=== PATIENT | male | born 1955 | race Caucasian/White ===

== ENCOUNTER 2020-01-03 14:18 | Inpatient (IN) | payer MEDICARE ==
[~2020-01-03] VITALS: Ht 188 cm; Wt 99.7 kg
[2020-01-03] VITALS (33 sets, daily range): BP systolic 54–121; BP diastolic 20–86; BMI 28.0
--- NOTE | 2020-01-03 19:50 | NUR ---
ATTEMPTED TO CALL FAMILY TO GET CONSENT TO PLACE AN ART LINE, NO ONE ANSWERED. WILL CALL BACK IN 5 MINUTES
--- NOTE | 2020-01-03 19:55 | NUR ---
ATTEMPTED TO CALL FAMILY AGAIN THAT IS ON EMERGENCY CONTACT. NO ONE ASWERED AGAIN. PER TO PLACE A-LINE PER EMERGENT SITUATION. WILL ATTEMPT TO NOTIFY FAMILY AGAIN
--- NOTE | 2020-01-03 20:00 | NUR ---
IS HERE AT THIS TIME AND PLACED A LEFT RADIAL A-LINE. PT VSS, TOLERATED WELL.
--- NOTE | 2020-01-03 20:35 | NUR ---
TALKED WITH POST A-LINE INSERCTION AND ABG THAT WAS ORDERED. NEW ORDER TO DECREASE OXYGEN TO 5L AND GET ABG IN ONE HOUR FROM NOW. ALSO TO KEEP VASOPRESSIN ON AND TRY TO WEAN LEVOPHED IF TOLERATING. READ BACK ALL ORDERES CORRECT
--- NOTE | 2020-01-03 20:35 | NUR ---
PT HAD LARGE INCONTINENT DARK BLOOD LIQUID STOOL. CLEANED COMPLETELY WITH CHG CLEANSER WITH FULL LINEN CHANGE. VSS. PT TOLERATED WELL. BED IS LEFT LOW,SIDE RAISLX2,CALL LIGHT WITHIN REACH. WILL CONITNUE TO MONITOR
[2020-01-03 21:23] LABS: BASOPHILS 0.2 % (0-2); EOSINOPHILS 0.4 % (0-7); IMMATURE GRANULOCYTES 0.3 % (0-5); MCH 34.8 pg (26.0-34.0); MCHC 30.7 g/dL (31.0-37.0); MCV 113.6 fL (80.0-100.0); MONOCYTES 6.7 % (2-11); NEUTROPHILS 71.4 % (40-80); PLATELET COUNT 93 10x3/uL (130-400); RDW 18.1 % (11.5-14.5); WBC 11.3 10x3/uL (4.8-10.8)
--- NOTE | 2020-01-03 21:30 | NUR ---
NOTIFIED RT TO COME AND GET ABG PER ORDER. THEY SAID THEY WOULD BE HERE SHORTLY
[2020-01-03 21:53] LABS: APTT 39.4 SECONDS (22.8-39.4); INR 4.12 (0.85-1.17); PROTIME 39.1 SECONDS (11.6-15.0)
[2020-01-03 22:05] LABS: ALBUMIN 1.9 g/dL (3.4-5.0); ANION GAP 13.4 mmol/L (8-16); BILIRUBIN - TOTAL 1.79 mg/dL (0.2-1.3); CALCIUM 9.9 mg/dL (8.5-10.1); CARBON DIOXIDE 20.1 mmol/L (21.0-32.0); CREATININE - SERUM 2.7 mg/dL (0.6-1.3); MAGNESIUM - SERUM 1.6 mg/dL (1.8-2.4); PHOSPHOROUS 4.1 mg/dL (2.5-4.9); POTASSIUM - SERUM 4.5 mmol/L (3.5-5.1)
[2020-01-03 22:10] LABS: RBC 1.32 10x6/uL (4.20-6.10)
[2020-01-03 22:11] LABS: HEMOGLOBIN 4.6 g/dL (13.5-17.5)
--- NOTE | 2020-01-03 22:28 | NUR ---
JUST TALKED WITH AND UPDATED ON LABS AND ABG. T.O TO GIVE 2 UNITS OF PRBC AND 2 UNITS OF FFP, AND TO GIVE 60MG OF LASIX AFTER GIVING THE 2 UNITS OF PRBC. T.O TO HOLD LR SINCE GETTING BLOOD PRODUCTS. T.O TO REPLACE MAGNESIUM PER LYTE PROTOCOL. T.O READ BACK CORRECT. WILL CONTINUE TO MONITOR
[2020-01-03 22:42] LABS: PLATELET ESTIMATE DECREASED
--- NOTE | 2020-01-03 23:11 | MORECARE ---
CASE MANAGEMENT DISCHARGE SUMMARY PATIENT: CARO SOLIS UNIT: [id number] ADM DATE: 01/03/20 AGE: 64 : 55 SEX: M ROOM/BED: D.2307 AUTHOR: HOLLIS HUI PHYSICIAN: REFERRING PHYSICIAN: TWAN HARTMAN MD DATE OF SERVICE: 01/03/20 Discharge Plan Patient Name: CARO SOLIS Facility: [facility]:[place] : 1955 Planned Disposition: Anticipated Discharge Date: Discharge Date: Expected LOS: Initial Reviewer: [email or web address] Initial Review Date: 01/03/2020 Generated: 01/04/20 12:10 am Patient Name: CARO SOLIS Page [id number] at 2311 All edits/amendments must be made on the electronic document DICTATION DATE: 01/03/202309 PIPE AND BOILER COVERS SUPERVISOR: COREEN 01/03/202309 RPT#: [id number] DC DATE: STATUS: ADM IN [facility] [address] [place] [address] END OF REPORT
[2020-01-04] VITALS (52 sets, daily range): BP systolic 94–128; BP diastolic 52–109
--- NOTE | 2020-01-04 00:30 | NUR ---
LAB CALLED TO NOTIFY THAT FFP IS READY. 0039 STARTED FFP AFTER 2 RN VERIFY, VSS
--- NOTE | 2020-01-04 01:28 | NUR ---
JUST STARTED SECOND BAG OF FFP PER ORDER. WILL ADMINSITER LASIX IV 60MG ORDERED. VSS. SLOWLY COMING OFF LEVOPHED. SEE IV FLOWSHEET. BED IS LOW,SIDE RIASLX2,CALL LIGHT WITHIN REACH. WILL CONITNUE TO MONITOR
[2020-01-04 02:05] LABS: HEMATOCRIT 14.4 % (42.0-54.0); HEMOGLOBIN 4.5 g/dL (13.5-17.5)
--- NOTE | 2020-01-04 03:21 | NUR ---
PT HAD ANOTHER LARGE DARK BLOODY LIQUID INCONTINENT STOOL IN THE BED. CLEANED COMPLETELY WITH CHG AGAIN. PARTIAL LINEN CHANGE THIS TIME. VSS. PT TOLERATED WELL. BED IS LOW,SIDE RAISLX2,CALL LIGHT WITHIN REACH. WILL CONITNUE TO MONITOR
[2020-01-04 03:35] LABS: BASOPHILS 0.3 % (0-2); EOSINOPHILS 0.3 % (0-7); IMMATURE GRANULOCYTES 0.2 % (0-5); LYMPHOCYTES 23.7 % (15-50); MCH 34.3 pg (26.0-34.0); MCHC 31.1 g/dL (31.0-37.0); MEAN PLATELET VOLUME 10.1 fL (7.4-10.4); MONOCYTES 8.2 % (2-11); NEUTROPHILS 67.3 % (40-80); PLATELET COUNT 77 10x3/uL (130-400); WBC 8.9 10x3/uL (4.8-10.8)
[2020-01-04 03:54] LABS: INR 2.79 (0.85-1.17); PROTIME 28.9 SECONDS (11.6-15.0)
--- NOTE | 2020-01-04 04:28 | NUR ---
STARTED SECOND PRBC AT THIS TIME. VSS. SEE BLOOD INFUSION SHEET
[2020-01-04 04:32] LABS: HEMATOCRIT 15.1 % (42.0-54.0); HEMOGLOBIN 4.7 g/dL (13.5-17.5); MCV 110.2 fL (80.0-100.0); RBC 1.37 10x6/uL (4.20-6.10)
[2020-01-04 04:34] LABS: ALBUMIN 2.3 g/dL (3.4-5.0); ANION GAP 12.2 mmol/L (8-16); BILIRUBIN - TOTAL 1.77 mg/dL (0.2-1.3); C-REACTIVE PROTEIN 3.4 mg/dL (0.0-0.9); CALCIUM 10.2 mg/dL (8.5-10.1); CARBON DIOXIDE 19.9 mmol/L (21.0-32.0); CREATININE - SERUM 2.5 mg/dL (0.6-1.3); MAGNESIUM - SERUM 1.7 mg/dL (1.8-2.4); PHOSPHOROUS 3.9 mg/dL (2.5-4.9); POTASSIUM - SERUM 4.1 mmol/L (3.5-5.1); PROTEIN - SERUM 6.5 g/dL (6.4-8.2)
[2020-01-04 04:45] LABS: % SATURATION 16 % (15-55); IRON 42 ug/dl (35-150); TOTAL IRON BIND CAPACITY 248 ug/dl (260-445); UNSAT IRON BIND CAPACITY 206 ug/dl (150-375)
--- NOTE | 2020-01-04 04:50 | NUR ---
PAGED AT THIS TIME
--- NOTE | 2020-01-04 04:52 | NUR ---
TALKED WITH ABOUT PT LABS. T.O TO GIVE 2 UNITS OF PRBC NOW, T.O READ BACK CORRECT. ALSO TO CONTACT TO NOTIFY OF ACTIVE GI BLEED
--- NOTE | 2020-01-04 06:15 | NUR ---
PAGED GI AGAIN AT THIS TIME
--- NOTE | 2020-01-04 06:36 | NUR ---
PAGED [phone] GI ANSWERING SERVICE. THEY ARE PAGING
--- NOTE | 2020-01-04 07:00 | NUR ---
BEDSIDE SHIFT REPORT COMPLETED. INTRODUCED MYSELF TO PT PRIMARY RN FOR TODAYS SHIFT. PT IS AWAKE BUT WILL NOT FOLLOW COMMANDS AND HE IS TRYING TO TALK BUT VERY GARBLED AND UNABLE TO UNDERSTAND. NC HIFLOW @5L RR NONLABORED AND LUNGS ARE CTA. PTS BLOOD JUST FINISHED TRANSFUSING AND HE WILL RECIEVE ANOTHER UNIT. SHIFT ASSESSMENT COMPLETED. WILL REVIEW CHART AND ORDERS AND BEGIN PLAN OF CARE FOR THIS PATIENT.
--- NOTE | 2020-01-04 07:35 | NUR ---
INITIATED 3RD UNIT OF PRBCS ORDERED. VSS AND BEING MONITERED. PT AWAKE BUT WILL NOT FOLLOW COMMANDS AND HAS INCOMPREHENSIVE SOUNDS. WILL CPOC.
--- NOTE | 2020-01-04 09:00 | NUR ---
OBTAINED TELEPHONE CONSENT FOR EGD WITH LIZA PARSONS VIA PTS NEKATHI WHOM HE WAS LIVING WITH PRIOR TO ID. ADILENE LOPEZ .
--- NOTE | 2020-01-04 10:00 | NUR ---
BLOOD TRANSFUSION COMPLETED. FLUSHED LINE AND PREPARED TO TAKE PT FOR HIS CT OF HEAD AND ELBOW. ELBOW CULTURE COMPLETED AND SENT TO LAB. PT IS AWAKE AND TRYING TO BE CONVERSANT HOWEVER I CANT UNDERSTAND WHAT HE IS SAYING AT ALL. PTS MOTHER WHOM LIVES IN [place] CALLED AND WAS UPDATED. PTS SUKUMAR WHOM WAS LIVING WITH HIM PRIOR TO STROKE AND [place] CALLED AND WAS ALSO UPDATED AND GAVE VERY RESOURCEFUL INFORMATION ABOUT EVENTS THAT LED TO HERE. I PERSONALLY UPDATED . WILL CONTACT [place] AND OTHER HOSPITAL FOR RECORDS.
--- NOTE | 2020-01-04 10:57 | NUR ---
4TH UNIT OF PRBCS INITIATED. ORDERED 2 MORE WELL SO THIS IS 4/6UNITS OF PRBCS. VSS AND BP MAINTAINING SBP>100 AND MAP >60 I CONTINUE TO WEAN HIS LEVOPHED. CURRENTLY LEVOPHED @5MCG WILL KEEP WEANING TOLERATED. NO CURRENT NEEDS IDENTIFIED AT THIS TIME. RESTRAINTS UN-TIED PT IS BEING COOPERATIVE. WILL CPOC.
--- NOTE | 2020-01-04 13:00 | NUR ---
4TH UNIT COMPLETED AND NO S/S OF ANY REACTIONS NOTED. VSS AND LEVOPHED HAS BEEN WEANED DOWN AND NOW COMPLETELY OFF WITH BP 112/80, VASOPRESSIN STILL INFUSING AND WILL CONTINUE TO MONITER AND WEAN TOLERATED. 5TH UNIT OF PRBCS INITIATED. LASIX PUSHED ORDERED FOR IN BETWEEN UNITS. PTS WADDELL DRAINING GOOD AMOUNT OF OUTPUT TO WADDELL HANGING OFF L.SIDE OF BED TO GRAVITY, CLEAR YELLOW URINE. REPOSITIONED PT IN BED FOR COMFORT AND CHECKED FOR INCONTINENCE NO BOWEL MOVEMENTS OF YET FOR TODAY. PT RESTING QUIETLY IN BED, NO S/S OF DISTRESS AT THIS TIME. RESTRAINTS REMAIN OFF. WILL CPOC.
--- NOTE | 2020-01-04 14:09 | NUR ---
PTS BP REMAINS STABLE AND NOT HYPOTENSIVE. TURNED OFF VASOPRESSIN AND WILL CTM IT. 5TH UNIT OF BLOOD STILL TRANSFUSING. NO CURRENT NEEDS AT THIS TIME. WILL CTM.
[2020-01-04] MEDS ORDERED: XANAX0.5 MG PO (15:11)
[2020-01-04] MEDS ORDERED: ELIQUIS5 MG PO (15:11)
[2020-01-04] MEDS ORDERED: LIPITOR40 MG PO (15:12)
[2020-01-04] MEDS ORDERED: LOW DOSE ASPIRI81 M1 PO (15:12)
[2020-01-04] MEDS ORDERED: PEPCID AC20 MG PO (15:13)
[2020-01-04] MEDS ORDERED: COLCRYS0.6 MG PO (15:13)
[2020-01-04] MEDS ORDERED: KEPPRA1000 MG PO (15:14)
[2020-01-04] MEDS ORDERED: METOPROLOL TART50 MG PO (15:15)
[2020-01-04] MEDS ORDERED: ZOLOFT25 MG PO (15:16)
--- NOTE | 2020-01-04 15:17 | NUR ---
OBTAINED EXTENSIVE HISTORY OF PTS MEDS AND RECENT HOSPITAL STAYS AND LABS. ALL PROVIDED NOW IN THE CHART. WILL RELAY MESSAGE TO PRIMARY SO EVERYONE HAS THE MOST ACCURATE INFORMATION.
--- NOTE | 2020-01-04 15:40 | NUR ---
6TH AND FINAL UNIT OF BLOOD INITIATED ORDERED FOR TODAY. VSS AND ALL PRESSORS ARE TURNED OFF. PT AWAKE AND STARING OFF TO THE LEFT SIDE IN BED. NO BM OR INCONTINENT EPISODE SO FAR TODAY. WADDELL DRAINING CLEAR YELLOW URINE TO GRAVITY OFF L.SIDE OF BED. NO IMMEDIATE NEEDS NOTED AT THIS TIME. WILL CPOC.
[2020-01-04 15:58] LABS: HEMATOCRIT 32.3 % (42.0-54.0); HEMOGLOBIN 10.8 g/dL (13.5-17.5)
--- NOTE | 2020-01-04 17:15 | NUR ---
EGD BEING PERFORMED AT BEDSIDE AT THIS TIME.
--- NOTE | 2020-01-04 17:54 | NUR ---
EGD COMPLETED. LAST UNIT OF BLOOD TRANFUSED AND STILL NO REACTION NOTED. PT RESTING QUIETLY IN BED WITH SIMPLE MASK IN PLACE. VSS AND PT REMAINS SBP >100 AND MAP >60 WITHOUT PRESSURE MEDICATION SUPPORT. NO IMMEDIATE NEEDS AT THIS TIME. WILL CPOC.
[2020-01-05] VITALS (24 sets, daily range): BP systolic 49–160; BP diastolic 36–131; Ht 188 cm; Wt 99.7 kg
[2020-01-05 06:23] LABS: BASOPHILS 0.3 % (0-2); EOSINOPHILS 2.6 % (0-7); HEMATOCRIT 33.1 % (42.0-54.0); HEMOGLOBIN 11.2 g/dL (13.5-17.5); IMMATURE GRANULOCYTES 0.6 % (0-5); LYMPHOCYTES 20.2 % (15-50); MCH 31.1 pg (26.0-34.0); MCHC 33.8 g/dL (31.0-37.0); MEAN PLATELET VOLUME 10.6 fL (7.4-10.4); MONOCYTES 10.6 % (2-11); NEUTROPHILS 65.7 % (40-80); RDW 20.8 % (11.5-14.5); WBC 7.2 10x3/uL (4.8-10.8)
--- NOTE | 2020-01-05 06:23 | NUR ---
PT HAS REMAINED STABLE THIS SHIFT. HE HAD 2 MEDIUM INCONTINENT BM OF BLACK TARRY STOOL. PT REMAINS NONCOMPLIANT BUT HAS NOT ATTEMPTED TO PULL OUT MEDICAL DEVICES OR LINES. I SPOKE WITH FAMILY AT THE BEGINNING OF THE SHIFT AND UPDATED THEM ON HIS STATUS AND ANSWERED ALL QTS. NAD AT THIS TIME. SAFETY PRECAUTIONS IN PLACE. WILL CONTINUE TO MONITOR
[2020-01-05 06:52] LABS: ALBUMIN 2.3 g/dL (3.4-5.0); BILIRUBIN - TOTAL 3.85 mg/dL (0.2-1.3); C-REACTIVE PROTEIN 4.5 mg/dL (0.0-0.9); CALCIUM 10.8 mg/dL (8.5-10.1); CARBON DIOXIDE 24.7 mmol/L (21.0-32.0); CREATININE - SERUM 2.2 mg/dL (0.6-1.3); PROTEIN - SERUM 6.7 g/dL (6.4-8.2)
[2020-01-05 06:57] LABS: MCV 91.9 fL (80.0-100.0)
[2020-01-05 06:58] LABS: PLATELET COUNT 49 10x3/uL (130-400)
[2020-01-05 07:07] LABS: ANION GAP 12.6 mmol/L (8-16); POTASSIUM - SERUM 3.3 mmol/L (3.5-5.1)
--- NOTE | 2020-01-05 23:56 | NUR ---
2100 PT ALERT. INCOMPREHENSIBLE SPEECH NOTED. PT IS NONCOMPLIANT WITH CARE. RN X2 TO TURN AND CLEAN PATIENT. COMPRESSION DRESSING TO LUE NOTED IN PLACE. BRIGHT RED BLOOD NOTED. NEW PAD APPLIED TO MONITOR OUTPUT. PLATELET COUNT OF 49 NOTED WITH AM LABS. PT REFUSED PO MEDS WILL. EDUCATED ABOUT MEDICATIONS AND NEED FOR COMPLIANCE WITH MED REGIMEN AT THIS TIME. GIVE HIM TIME AND TRY MEDS AGAIN 2200 PT CLAMPS DOWN JAWS AND REFUSED TO TAKE PO MEDS. WILL GIVE MORE TIME 2300 PT CONTINUES TO BE NONCOMPLIANT WITH PO MEDS. HR 125-140. [facility] CONTACTED 2315 NEW ORDERS FOR IV LOPRESSOR, KEPPRA, AND BENADRYL. KEPPRA IS UNAVAILABLE IN [facility]. [facility] NOTIFIED OF NEED FOR IV KEPPRA. AWAITING KEPPRA AT THIS TIME. WILL CONTINUE TO MONITOR
[2020-01-06] VITALS (24 sets, daily range): BP systolic 119–155; BP diastolic 75–120
[2020-01-06 06:03] LABS: BASOPHILS 0.2 % (0-2); EOSINOPHILS 0.5 % (0-7); HEMATOCRIT 33.6 % (42.0-54.0); IMMATURE GRANULOCYTES 0.5 % (0-5); LYMPHOCYTES 19.4 % (15-50); MCH 30.9 pg (26.0-34.0); MCHC 32.7 g/dL (31.0-37.0); MEAN PLATELET VOLUME 10.6 fL (7.4-10.4); NEUTROPHILS 71.4 % (40-80); RBC 3.56 10x6/uL (4.20-6.10); RDW 20.9 % (11.5-14.5); WBC 5.6 10x3/uL (4.8-10.8)
[2020-01-06 06:06] LABS: INR 1.6 (0.85-1.17); PROTIME 18.9 SECONDS (11.6-15.0)
[2020-01-06 06:16] LABS: ALBUMIN 2.1 g/dL (3.4-5.0); ANION GAP 10.2 mmol/L (8-16); BILIRUBIN - TOTAL 3.37 mg/dL (0.2-1.3); C-REACTIVE PROTEIN 3.7 mg/dL (0.0-0.9); CALCIUM 10.7 mg/dL (8.5-10.1); CREATININE - SERUM 1.9 mg/dL (0.6-1.3); POTASSIUM - SERUM 3.2 mmol/L (3.5-5.1); PROTEIN - SERUM 6.7 g/dL (6.4-8.2); VANCOMYCIN - RANDOM 19.3 ug/mL (10.0-20.0)
[2020-01-06 06:45] LABS: MCV 94.4 fL (80.0-100.0)
[2020-01-06 06:46] LABS: PLATELET COUNT 43 10x3/uL (130-400)
--- NOTE | 2020-01-06 06:59 | NUR ---
CRITICAL LAB CHLORIDE 118 PLATELET [address] MARTINEZ IN UNIT. NO NEW ORDERS AT THIS TIME
--- NOTE | 2020-01-06 07:30 | NUR ---
PT LAYING IN BED, PT NOT ORIENTED AND SPEECH IS GARBLED, PT DOES NOT FOLLOW COMMANDS, PT REPOSIIONED FOR COMFORT, WILL MONITOR
--- NOTE | 2020-01-06 09:46 | NUR ---
Nutrition follow-up: Pt continues NPO; GI bleed Labs reviewed Wt: 211# Recommend starting ProcalAmine PPN @ 75 ml/hr if diet unable to begin today. RDN following.
[2020-01-06 10:32] LABS: PLATELET ESTIMATE DECREASED
[2020-01-06 10:33] LABS: ROULEAUX OCC
--- NOTE | 2020-01-06 10:35 | NUR ---
DR. HARTMAN HERE SEEING PT
--- NOTE | 2020-01-06 12:00 | NUR ---
PY LAYING IN BED RESTING, DOES NOT FOLLOW COMMANDS, ATTEMPTED TO RE ORIENT, WILL MONITOR
--- NOTE | 2020-01-06 14:00 | NUR ---
SPEECH THERAPIST AT BEDSIDE FOR SWALLOW STUDY, PT TOLERATED WELL, RECOMENDED PURRED DIET WITH THIN LIQUIDS, POSITIONED FOR COMFORT, WILL MONITOR
--- NOTE | 2020-01-06 15:20 | NUR ---
DRESSING CHANGED TO RIGHT ELBOW AT THIS TIME, CDI, PT TOLERATED WELL, SCOTTIE BARKER
--- NOTE | 2020-01-06 17:00 | NUR ---
PT REFUSES TO EAT DINNER AT THIS TIME, ATTEMPTED TO REORIENT, WILL MONITOR
[2020-01-06 17:47] LABS: ANION GAP 8.7 mmol/L (8-16); CALCIUM 10.7 mg/dL (8.5-10.1); CARBON DIOXIDE 25.9 mmol/L (21.0-32.0); CREATININE - SERUM 1.7 mg/dL (0.6-1.3); POTASSIUM - SERUM 3.6 mmol/L (3.5-5.1)
--- NOTE | 2020-01-06 17:59 | NUR ---
OFFERED WATER, TOLERATED WELL, WILL MONITOR
--- NOTE | 2020-01-06 19:54 | MORECARE ---
CASE MANAGEMENT DISCHARGE SUMMARY PATIENT: CARO SOLIS UNIT: [id number] ADM DATE: 01/03/20 AGE: 64 : 55 SEX: M ROOM/BED: D.2307 AUTHOR: HOLLIS HUI PHYSICIAN: REFERRING PHYSICIAN: TWAN HARTMAN MD DATE OF SERVICE: 01/06/20 Discharge Plan Patient Name: CARO SOLIS [facility] [facility] 1955 Planned Disposition: Care Home Facility Anticipated Discharge Date: Discharge Date: Expected LOS: Initial Reviewer: [email or web address] Initial Review Date: 01/03/2020 Generated: 01/06/20 8:54 pm Last DP export: 01/03/20 10:11 p Patient Name: CARO SOLIS Page [id number] at 1953 All edits/amendments must be made on the electronic document DICTATION DATE: 01/06/201953 STONE DRESSER: COREEN 01/06/201953 RPT#: [id number] DC DATE: STATUS: ADM IN [facility] [address] [place] [address] END OF REPORT
--- NOTE | 2020-01-06 20:01 | MORECARE ---
CASE MANAGEMENT DISCHARGE SUMMARY PATIENT: CARO SOLIS UNIT: [id number] ADM DATE: 01/03/20 AGE: 64 : 55 SEX: M ROOM/BED: D.2307 AUTHOR: HOLLIS HUI PHYSICIAN: REFERRING PHYSICIAN: TWAN HARTMAN MD DATE OF SERVICE: 01/06/20 Discharge Plan Patient Name: CARO SOLIS [facility] [facility] 1955 Planned Disposition: [facility] Facility Anticipated Discharge Date: Discharge Date: Expected LOS: Initial Reviewer: [email or web address] Initial Review Date: 01/03/2020 Generated: 01/06/20 9:00 pm DCPIA - Discharge Planning Initial Assessment Updated by [email or web address]: Aleja Gerber on 01/06/20 7:59 pm * Is the patient Alert and Oriented? Yes * PCP [facility] * Pharmacy [facility] * Preadmission Environment [facility] Facility * Facility Name [facility] * ADLs Partial Dependent * Partial ADLs (Assistance needed) Ambulation Bathing Dressing Eating Medication Management Toileting Transfers * List name and contact numbers for known caregivers / representatives who currently or will assist patient after discharge: ADILENE FRASER - [phone] PATTIE SOLIS - [phone] JD SOLIS [phone] * Additional services required to return to the preadmission environment? No * Can the patient safely return to the preadmission environment? Yes * Has this patient been hospitalized within the prior 30 days at any hospital? No Last DP export: 01/06/20 6:54 p Patient Name: CARO SOLIS Page [id number] at 2001 All edits/amendments must be made on the electronic document DICTATION DATE: 01/06/201999 CLIENT MANAGER: COREEN 01/06/201999 RPT#: [id number] DC DATE: STATUS: ADM IN [facility] [address] [place] [address] END OF REPORT
--- NOTE | 2020-01-06 20:08 | MORECARE ---
CASE MANAGEMENT DISCHARGE SUMMARY PATIENT: CARO SOLIS UNIT: [id number] ADM DATE: 01/03/20 AGE: 64 : 55 SEX: M ROOM/BED: D.2307 AUTHOR: KORINA,DOC PHYSICIAN: REFERRING PHYSICIAN: TWAN HARTMAN MD DATE OF SERVICE: 01/06/20 Discharge Plan Patient Name: CARO SOLIS Facility: [facility]:[place] : 1955 Planned Disposition: Prison Facility Anticipated Discharge Date: Discharge Date: Expected LOS: Initial Reviewer: [email or web address] Initial Review Date: 01/03/2020 Generated: 01/06/20 9:07 pm Comments DCP- Discharge Planning Updated by [id number]: Aleja Gerber on 01/06/20 7:[address] LATE ENTRY 01/04/20 Patient Name: CARO SOLIS Admission Status: Elective Accout number: [id number] Admission Date: 01-03-2020 : 1955 Admission Diagnosis:SEPSIS, UNSPECIFIED ORGANISM Attending: MINNIE, Current LOS: 3 Anticipated DC Date: Planned Disposition: Prison Facility Primary Insurance: MEDICARE A & B Discharge Planning Comments: PATIENT IS IN A PENITENTIARY BED AT [facility] IN [place] [phone]. PLAN IS TO RETURN THERE FOR REHAB UPON DISCHARGE. CM WILL CONTINUE TO FOLLOW AND ASSIST NEEDED WITH DISCHARGE PLANNING / NEEDS. Site Supervisor: Aleja Gerber DCPIA - Discharge Planning Initial Assessment Updated by [email or web address]: Aleja Gerber on 01/06/20 7:59 pm * Is the patient Alert and Oriented? Yes * [facility] * [facility] * Preadmission Environment Prison Facility * Facility Name [facility] * ADLs Partial Dependent * Partial ADLs (Assistance needed) Ambulation Bathing Dressing Eating Medication Management Toileting Transfers * List name and contact numbers for known caregivers / representatives who currently or will assist patient after discharge: ADILENE FRASER - [phone] PATTIE STRANGE - [phone] JD SOLIS - [phone] * Additional services required to return to the preadmission environment? No * Can the patient safely return to the preadmission environment? Yes * Has this patient been hospitalized within the prior 30 days at any hospital? No Last DP export: 01/06/20 7:01 p Patient Name: CARO SOLIS Page 19652 at 2008 All edits/amendments must be made on the electronic document DICTATION DATE: 01/06/202006 AGENT PRODUCER: COREEN 01/06/202006 RPT#: [id number] DC DATE: STATUS: ADM IN [address] [place] [address] END OF REPORT
[2020-01-07] VITALS (24 sets, daily range): BP systolic 104–144; BP diastolic 55–95
[2020-01-07 06:15] LABS: BASOPHILS 0.3 % (0-2); EOSINOPHILS 3.5 % (0-7); HEMATOCRIT 31.8 % (42.0-54.0); HEMOGLOBIN 10.4 g/dL (13.5-17.5); IMMATURE GRANULOCYTES 0.3 % (0-5); LYMPHOCYTES 31.2 % (15-50); MCH 31.1 pg (26.0-34.0); MCHC 32.7 g/dL (31.0-37.0); MCV 95.2 fL (80.0-100.0); MONOCYTES 7.4 % (2-11); NEUTROPHILS 57.3 % (40-80); RBC 3.34 10x6/uL (4.20-6.10); RDW 20.2 % (11.5-14.5); WBC 6.4 10x3/uL (4.8-10.8)
[2020-01-07 06:21] LABS: PLATELET COUNT 42 10x3/uL (130-400)
[2020-01-07 06:37] LABS: ALBUMIN 2.1 g/dL (3.4-5.0); ANION GAP 9.1 mmol/L (8-16); BILIRUBIN - TOTAL 2.85 mg/dL (0.2-1.3); CALCIUM 10.4 mg/dL (8.5-10.1); CARBON DIOXIDE 24.1 mmol/L (21.0-32.0); CREATININE - SERUM 1.6 mg/dL (0.6-1.3); POTASSIUM - SERUM 3.2 mmol/L (3.5-5.1); PROTEIN - SERUM 6.1 g/dL (6.4-8.2)
[2020-01-07 06:45] LABS: INR 1.55 (0.85-1.17); PROTIME 18.4 SECONDS (11.6-15.0)
--- NOTE | 2020-01-07 07:30 | NUR ---
PT LAYING IN BED RESTING, NO ACUTE DISTRESS NOTED, PT IS DISORIENTED AND DOES NOT FOLLOW COMMANDS, POSITIONED FOR COMFORT, WILL MONITOR
--- NOTE | 2020-01-07 08:30 | NUR ---
OFFERED PT BREAKFAST, REFUSES TO EAT, PO MEDS GIVEN IN APPLSAUCE, TOLERATED WELL, WILL MONITOR
--- NOTE | 2020-01-07 10:45 | NUR ---
DR HARTMAN HERE SEEING PATIENT
--- NOTE | 2020-01-07 12:00 | NUR ---
A LINE DC'D AT THIS TIME, DRESSING APPLIED, COMPLETE LINEN CHANGE AND PT REPOSITIONED, WILL MONITOR
[2020-01-07 13:08] LABS: MAGNESIUM - SERUM 1.4 mg/dL (1.8-2.4)
[2020-01-07 13:09] LABS: POTASSIUM - SERUM 3.9 mmol/L (3.5-5.1)
--- NOTE | 2020-01-07 14:00 | NUR ---
PT SLEEPING, NO DISTRESS NOTED, WILL MONITOR
--- NOTE | 2020-01-07 16:00 | NUR ---
RESTING COMFORTABLE, OFFERED WATER, PT REFUSES, WILL MONITOR
--- NOTE | 2020-01-07 17:54 | NUR ---
pt sleeping, no distress noted, will monitor
[2020-01-08] VITALS (22 sets, daily range): BP systolic 100–166; BP diastolic 59–101
--- NOTE | 2020-01-08 02:52 | NUR ---
0200 - SPOKE WITH DR. VILLALOBOS REGARDING LAB RESULTS OF TROPONIN AT 12.481 AND CKMB OF 15.4. ORDERS RECEIVED TO CONSULT DR. PAZ IN AM WELL TO OBTAIN CT OF HEAD WITHOUT CONTRAST IN THE MORNING
[2020-01-08 03:53] LABS: INR 1.47 (0.85-1.17); PROTIME 17.7 SECONDS (11.6-15.0)
[2020-01-08 03:56] LABS: BASOPHILS 0.3 % (0-2); EOSINOPHILS 4.9 % (0-7); HEMATOCRIT 33.1 % (42.0-54.0); HEMOGLOBIN 10.9 g/dL (13.5-17.5); IMMATURE GRANULOCYTES 0.2 % (0-5); LYMPHOCYTES 26.3 % (15-50); MCH 31.8 pg (26.0-34.0); MCHC 32.9 g/dL (31.0-37.0); MCV 96.5 fL (80.0-100.0); MEAN PLATELET VOLUME 11.4 fL (7.4-10.4); NEUTROPHILS 60.3 % (40-80); RBC 3.43 10x6/uL (4.20-6.10); RDW 19.7 % (11.5-14.5); WBC 6.6 10x3/uL (4.8-10.8)
[2020-01-08 03:58] LABS: PLATELET COUNT 42 10x3/uL (130-400)
[2020-01-08 04:00] LABS: ALBUMIN 1.9 g/dL (3.4-5.0); ANION GAP 9.3 mmol/L (8-16); BILIRUBIN - TOTAL 2.67 mg/dL (0.2-1.3); CALCIUM 9.7 mg/dL (8.5-10.1); CARBON DIOXIDE 24.2 mmol/L (21.0-32.0); CREATININE - SERUM 1.5 mg/dL (0.6-1.3); POTASSIUM - SERUM 3.5 mmol/L (3.5-5.1); PROTEIN - SERUM 6.3 g/dL (6.4-8.2); VANCOMYCIN - RANDOM 23.1 ug/mL (10.0-20.0)
--- NOTE | 2020-01-08 07:43 | NUR ---
PT LAYING SUPINE, RR EVEN AND UNLABORED ON 2L NC. SPEECH IS MUMBLED. IN 2 POINT RESTRAINTS AT THE WRIST, NO SIGN OF REDNESS OR SKIN INTEGRITY ISSUES AROUND RESTRAINTS. DRESSINGS TO LEFT UPPER ARM AND RIGHT ELBOW NOTED CLEAN, DRY, AND INTACT. D5 INFUSING @ 100MLS/HR. MOUTH IS DRY WITH DRY SKIN ON LIPS, WILL RECIEVE ORAL CARE THIS AM. PT IS YELLING, BUT UNABLE TO UNDERSTAND. WADDELL NOTED. BED IN LOWEST POSITION. WILL CONTINUE TO MONITOR.
--- NOTE | 2020-01-08 09:16 | NUR ---
CAN UNDERSTAND PT EVERY ONCE IN A WHILE, STILL CONFUSED TO TIME, PERSON, PLACE, AND SITUATION. ABLE TO COUGH UP AND SPIT OUT SECRETIONS, BUT REFUSES TO BE SUCTIONED OUT. MUCOUS SEQUEIRA AND THICK; HOWEVER, LUNG SOUNDS CLEAR. ASSISTED WITH WASHING FACE. MOUTH MOISTURIZER APPLIED. PT REFUSED TO OPEN MOUTH TO PROVIDE ORAL CARE. ABLE TO TOLERATE MEDICATIONS CRUSHED AND IN APPLESAUCE. ATE 25% OF FOOD. BED IN LOWEST POSITION. RR EVEN AND UNLABORED ON 2L HF NC. WILL CONTINUE TO MONITOR.
--- NOTE | 2020-01-08 11:44 | NUR ---
PER DR HARTMAN, TRANSFER PT BACK TO FACILITY WHICH HE WAS INITIALLY TRANSFERRED FROM. CASE MANAGEMENT NOTIFIED.
--- NOTE | 2020-01-08 12:30 | MORECARE ---
CASE MANAGEMENT DISCHARGE SUMMARY PATIENT: CARO SOLIS UNIT: [id number] ADM DATE: 01/03/20 AGE: 64 : 55 SEX: M ROOM/BED: D.2307 AUTHOR: KORINADOC PHYSICIAN: REFERRING PHYSICIAN: TWAN HARTMAN MD DATE OF SERVICE: 01/08/20 Discharge Plan Patient Name: CARO SOLIS Facility: [facility]:[place] : 1955 Planned Disposition: Care Home Facility Anticipated Discharge Date: Discharge Date: Expected LOS: Initial Reviewer: [email or web address] Initial Review Date: 01/03/2020 Generated: 01/08/20 1:29 pm Comments DCP- Discharge Planning Updated by [email or web address]: James Diop on 01/08/20 11:[address] Patient Name: CARO SOLIS Encounter No: [id number] : 1955 Primary Insurance: MEDICARE A & B Anticipated DC Date: Planned Disposition: Care Home Facility External Planned Provider: : DCP follow-up note: Telephone call to [facility] in [place], [place] spoke with PINKY Jimenez (maintenance worker house trailer). Barbara states that [facility] is unable to take patients in restraints. Barbara further stated that if patients are in restraints then a higher level of care is needed and their facility is unable to provide that care. Hospital to Hospital transfer is not feasible at this time. Case management will follow and assist as needed. James Diop DCP- Discharge Planning Updated by [id number]: Aleja Gerber on 01/06/20 7:[address] LATE ENTRY 01/04/20 Patient Name: CARO SOLIS Admission Status: Elective Accout number: [id number] Admission Date: 01-03-2020 : 1955 Admission Diagnosis:SEPSIS, UNSPECIFIED ORGANISM Attending: MINNIE, Current LOS: 3 Anticipated DC Date: Planned Disposition: Care Home Facility Primary Insurance: MEDICARE A & B Discharge Planning Comments: PATIENT IS IN A LONG-TERM BED AT [facility] IN [place] [phone]. PLAN IS TO RETURN THERE FOR REHAB UPON DISCHARGE. CM WILL CONTINUE TO FOLLOW AND ASSIST NEEDED WITH DISCHARGE PLANNING / NEEDS. Spot Sprayer: Aleja Gerber DCPIA - Discharge Planning Initial Assessment Updated by [id number]: Aleja Gerber on 01/06/20 7:59 pm * Is the patient Alert and Oriented? Yes * PCP [facility] * Pharmacy [facility] * Preadmission Environment Care Home Facility * Facility Name [facility] * ADLs Partial Dependent * Partial ADLs (Assistance needed) Ambulation Bathing Dressing Eating Medication Management Toileting Transfers * List name and contact numbers for known caregivers / representatives who currently or will assist patient after discharge: ADILENE ESCUDEROVINAY - [phone] PATTIE STRANGE [phone] JD SOLIS [phone] * Additional services required to return to the preadmission environment? No * Can the patient safely return to the preadmission environment? Yes * Has this patient been hospitalized within the prior 30 days at any hospital? No Last DP export: 01/06/20 7:08 p Patient Name: CARO SOLIS Page 19970 at 1230 All edits/amendments must be made on the electronic document DICTATION DATE: 01/08/20 1229 READING ASSISTANT: COREEN 01/08/20 1229 RPT#: [id number] DC DATE: STATUS: ADM IN [facility] [address] [place] [address] END OF REPORT
--- NOTE | 2020-01-08 13:54 | NUR ---
PT STABLE SITTING UP IN BED AWAKE AT THIS TIME. VSS. NO ACUTE DISTRESS NOTED. AGREE WITH ASSESSMENT OF JOHNNY HERNÁNDEZ.
--- NOTE | 2020-01-08 15:46 | NUR ---
PT SITTING UP IN BED, RR EVEN AND UNLABORED. HAS TAKEN HIS HF NC OFF. O2 SAT @ 98% ON ROOM AIR, WILL LEAVE OFF FOR NOW AND USE PRN SUPPLIMENTAL OXYGEN. SPOKE WITH AIDE AND DR. YANG, BOTH EXPRESSED THEY WOULD LIKE TO SEE HOW HE DOES OFF THE RESTRAINTS. TO ENSURE SAFETY, ORDERS OBTAINED TO D/C WADDELL AND CVL. BALLOON DEFLATED, WADDELL REMOVED WITH 600 MLS DARK URINE PRESENT. X2 PIV'S INSERTED TO LEFT ARM, BOTH 20G. WRAPPED WITH KERLIX TO MAKE SURE PT DOES NOT SEE THEM AND PULL THEM OUT. DRESSING TO LEFT UPPER ARM REMOVED AND REDRESSED. SMALL SKIN TEAR NOTED UNDER DRESSING. RIGHT ELBOW DRESSING REMOVED AND REDRESSED. ORAL CARE PROVIDED. RESTRAINTS REMOVED. RECIEVED ENSURE AND DRANK 75%. LINENS REMOVED AND REPLACED WITH CLEAN. DENIES FURTHER NEEDS OR PAIN AT THIS TIME. BED ALARM TURNED ON AND FUNCTIONING PROPERLY. BED IN LOWEST POSITION. CALL LIGHT WITHIN REACH. WILL CONTINUE TO MONITOR
--- NOTE | 2020-01-08 19:58 | NUR ---
INITIAL ROUNDS COMPLETED AT 1900 HRS. PT CUSSING STAFF, UNCOOPERATIVE. ASSESSMENT COMPLETED AT 1940 HRS. VSS. SR PER CM HR 85. IV X2 TO LFA WITH D5W AT 75C/HR. IV PATENT. RTLSC NOTED. LUNGS DIMINISHED IN BASES BILAT. [place]. SPEECH GRABLED AT TIMES BUT PROFANITY CLEAR. BED ALARM ON. CVL DC'D AT 194 HRS USING STERILE TECHNIQUE. PT UNCOOPERATIVE WITH ACTIVITY. PRESSURE HELD X 10 MINUTES AND PRESSURE DRESSING APPLIED. SR UP X2, CALL LIGHT WITHIN REACH AND BED AALRM ON.
--- NOTE | 2020-01-08 20:09 | NUR ---
PT ATTEMPTING TO PULLOUT IV. PT CONFUSED. SOFT WRIST RESTRAINTS APPLIED.
--- NOTE | 2020-01-08 21:59 | NUR ---
WATCHING TV. NO DISTRESS NOTED. SR UP X2, CALL LIGHT WITHIN REACH AND BED ALARM ON.
[2020-01-09] VITALS (13 sets, daily range): BP systolic 107–140; BP diastolic 67–97
--- NOTE | 2020-01-09 00:06 | NUR ---
VSS. SCANT URINE NOTED IN DEPENDS. NEW DEPENDS PLACED. BLADDER NOT DISTENDED. PT DENIES NEED TO URINATE. SR UP X2, CALL LIGHT WITHIN REACH AND BED ALARM ON.
--- NOTE | 2020-01-09 02:07 | NUR ---
VSS. PT TALKING TO SELF. PT DRANK APPROX 180CC OF WATER. NO CHANGE IN STATUS NOTED. SR UP X2,CALL LIGHT WITHIN REACH AND BED ALARM ON.
--- NOTE | 2020-01-09 03:04 | NUR ---
NO UO EXCEPT 2-3 DROPS SINCE WADDELL REMOVED AT 1545 HRS. BLADDER SCAN DONE WITH 648CC RESIDUAL NOTED. 16FR WADEDLL PLACED USING STERILE TECHNIQUE WITH 425CC OF CONCENTRATED URINE RETURNED. PT TOLERATED ACTIVITY WELL AND STATED FELT MUCH IMPROVED. SR UP X2, CALL LIGHT WITHIN REACH AND BED ALARM ON.
--- NOTE | 2020-01-09 04:01 | NUR ---
VSS. NO CHANGE IN STATUS NOTED. WADDELL EMPTIED OF 475CC OF CONCENTRATED URINE. PT DECLINES OFFER OF FLUIDS. SR UP X2, CALL LIGHT WITHIN REACH AND BED ALARM ON.
[2020-01-09 04:56] LABS: BASOPHILS 0.1 % (0-2); EOSINOPHILS 2.8 % (0-7); HEMOGLOBIN 9.8 g/dL (13.5-17.5); IMMATURE GRANULOCYTES 0.3 % (0-5); LYMPHOCYTES 21.1 % (15-50); MCH 30.2 pg (26.0-34.0); MCHC 31.6 g/dL (31.0-37.0); MCV 95.4 fL (80.0-100.0); MEAN PLATELET VOLUME 11.8 fL (7.4-10.4); MONOCYTES 9.2 % (2-11); NEUTROPHILS 66.5 % (40-80); RBC 3.25 10x6/uL (4.20-6.10); RDW 18.8 % (11.5-14.5); WBC 7.1 10x3/uL (4.8-10.8)
[2020-01-09 05:22] LABS: ALBUMIN 1.8 g/dL (3.4-5.0); ANION GAP 9.9 mmol/L (8-16); BILIRUBIN - TOTAL 2.32 mg/dL (0.2-1.3); CALCIUM 9.6 mg/dL (8.5-10.1); CREATININE - SERUM 1.4 mg/dL (0.6-1.3); POTASSIUM - SERUM 3.9 mmol/L (3.5-5.1)
[2020-01-09 05:39] LABS: PLATELET COUNT 46 10x3/uL (130-400)
--- NOTE | 2020-01-09 06:21 | NUR ---
VSS THROUGHOUT NIGHT. SR PER CM. CONTIUES TO BE CONFUSED AND ATTEMPTING TO PULL OUT IV AND CATHETER. NEEDS MET; WILL CONTINUE TO MONITOR.
--- NOTE | 2020-01-09 06:50 | NUR ---
DR YANG NOTIFIED THAT A WADDELL WAS PLACED FOR RETENTION.
--- NOTE | 2020-01-09 07:00 | NUR ---
PT REPORT AT THIS TIME, PT ASSESSMENT COMPLETED, NO CHANGES NOTED FROM NURSE REPORT. PT IS AWAKE AND ALERT, VERY CONFUSED, WITH SLURRED DYSARTHRIC SPEECH. VSS
--- NOTE | 2020-01-09 09:10 | NUR ---
SPEECH THERAPY HERE AT BEDSIDE, UPDATED ON PT'S TOLERANCE OF MEDS, AND FOOD SWALLOWING.
[2020-01-09 09:53] LABS: APTT 39.5 SECONDS (22.8-39.4); INR 1.53 (0.85-1.17); PROTIME 18.2 SECONDS (11.6-15.0)
--- NOTE | 2020-01-09 10:17 | NUR ---
Nutrition follow-up: Pt asleep at time of RDN visit Per speech path, pt ate a little breakfast without any issues Pt continues to be confused and in restraints Labs reviewed Wt: 219# Pt requires assistance with all meals, snacks RDN following.
--- NOTE | 2020-01-09 13:01 | MORECARE ---
CASE MANAGEMENT DISCHARGE SUMMARY PATIENT: CARO SOLIS UNIT: [id number] ADM DATE: 01/03/20 AGE: 64 : 55 SEX: M ROOM/BED: D.2307 AUTHOR: KORINADOC PHYSICIAN: REFERRING PHYSICIAN: TWAN HARTMAN MD DATE OF SERVICE: 01/09/20 Discharge Plan Patient Name: CARO SOLIS Facility: [facility]:[place] : 1955 Planned Disposition: Long-Term Facility Anticipated Discharge Date: Discharge Date: Expected LOS: Initial Reviewer: [email or web address] Initial Review Date: 01/03/2020 Generated: 01/09/20 2:00 pm Comments DCP- Discharge Planning Updated by [email or web address]: James Diop on 01/08/20 11:[address] Patient Name: CARO SOLIS Encounter No: [id number] : 1955 Primary Insurance: MEDICARE A & B Anticipated DC Date: Planned Disposition: Long-Term Facility External Planned Provider: : DCP follow-up note: Telephone call to [facility] in [place], [place] spoke with PINKY Jimenez (greenhouse transplanter). Barbara states that [facility] is unable to take patients in restraints. Barbara further stated that if patients are in restraints then a higher level of care is needed and their facility is unable to provide that care. Hospital to Hospital transfer is not feasible at this time. Case management will follow and assist as needed. James Diop DCP- Discharge Planning Updated by [email or web address]: Aleja Gerber on 01/06/20 7:[address] LATE ENTRY 01/04/20 Patient Name: CARO SOLIS Admission Status: Elective Accout number: [id number] Admission Date: 01-03-2020 : 1955 Admission Diagnosis:SEPSIS, UNSPECIFIED ORGANISM Attending: MINNIE, Current LOS: 3 Anticipated DC Date: Planned Disposition: Long-Term Facility Primary Insurance: MEDICARE A & B Discharge Planning Comments: PATIENT IS IN A FPC BED AT [facility] IN [place] [phone]. PLAN IS TO RETURN THERE FOR REHAB UPON DISCHARGE. CM WILL CONTINUE TO FOLLOW AND ASSIST NEEDED WITH DISCHARGE PLANNING / NEEDS. Sap Project Manager: Aleja Gerber DCPIA - Discharge Planning Initial Assessment Updated by [email or web address]: Aleja Gerber on 01/06/20 7:59 pm * Is the patient Alert and Oriented? Yes * [facility]CP [facility] * Pharmacy [facility] * Preadmission Environment Long-Term Facility * Facility Name [facility] * ADLs Partial Dependent * Partial ADLs (Assistance needed) Ambulation Bathing Dressing Eating Medication Management Toileting Transfers * List name and contact numbers for known caregivers / representatives who currently or will assist patient after discharge: ADILENE JOHN FRASER - [phone] PATTIE STRANGE - [phone] JD SOLIS [phone] * Additional services required to return to the preadmission environment? No * Can the patient safely return to the preadmission environment? Yes * Has this patient been hospitalized within the prior 30 days at any hospital? No External Providers External Provider: OTHER-OTHER Next Contact Date: Service Request Date: Service Type: Resolution: Reviewer: Comments: Last DP export: 01/08/20 11:30 a Patient Name: CARO SOLIS Page [id number] at 1301 All edits/amendments must be made on the electronic document DICTATION DATE: 01/09/20 1301 SPINNER TENDER: COREEN 01/09/20 1301 RPT#: [id number] DC DATE: STATUS: ADM IN [facility] [address] [id number] END OF REPORT
--- NOTE | 2020-01-09 18:15 | NUR ---
REC'D TO ROOM 2204 AT THIS TIME VIA BED. AWAKE AND ALERT TO SELF ONLY. RESP EVEN AND UNLABORED WITH NO DISTRESS NOTED. HAS BRUISING NOTED TO BUE. PT HAS CONTINUED TO CLIMB OUT OF BED SINCE ARRIVING TO THE FLOOR. SONIA BED ALARM IN USE AND WORKING PROPERLY. C/L IN REACH AT BEDSIDE
[2020-01-10 00:15] VITALS: BP 134/68
[2020-01-10 04:00] VITALS: BP 116/59
[2020-01-10 08:58] VITALS: BP 120/82
[2020-01-10 09:11] LABS: CREATININE - SERUM 1.4 mg/dL (0.6-1.3)
[2020-01-10 09:17] LABS: BASOPHILS 0.3 % (0-2); EOSINOPHILS 3.1 % (0-7); HEMATOCRIT 33.4 % (42.0-54.0); IMMATURE GRANULOCYTES 0.1 % (0-5); LYMPHOCYTES 27.2 % (15-50); MCH 31.5 pg (26.0-34.0); MCHC 32.9 g/dL (31.0-37.0); MCV 95.7 fL (80.0-100.0); MEAN PLATELET VOLUME 11.3 fL (7.4-10.4); MONOCYTES 7.4 % (2-11); NEUTROPHILS 61.9 % (40-80); RBC 3.49 10x6/uL (4.20-6.10); RDW 18.6 % (11.5-14.5); WBC 7.8 10x3/uL (4.8-10.8)
[2020-01-10 10:15] LABS: PLATELET COUNT 46 10x3/uL (130-400)
[2020-01-10] MEDS ORDERED: LEVAQUIN750 MG PO (11:27)
[2020-01-10] MEDS ORDERED: VIBRAMYCIN 100100 MG PO (11:27)
[2020-01-10] MEDS ORDERED: FLORAJEN3 CAPS460 MG PO (11:28)
[2020-01-10] MEDS ORDERED: ANUSOL-HC25 MG RC (11:28)
[2020-01-10] MEDS ORDERED: ANUSOL-HC 2.5%30 GM TOPICAL (11:28)
[2020-01-10 12:35] LABS: PLATELET ESTIMATE DECREASED
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
--- NOTE | 2020-01-10 13:26 | NUR ---
0700 BEDSIDE REPORT RECEIVED PT CONFUSED REORDIENTED GAWBLED SPEECH NOTED
--- NOTE | 2020-01-10 13:27 | NUR ---
1300 REPORT CALLED TO IRMA BLANCO NURSE FRANKO
--- NOTE | 2020-01-10 14:44 | NUR ---
1442 AMBULANCE TRANSFER STAFF PRESENT TO TAKE PT TO [facility] IN [place] REPORTED TO ME THAT PT HAS NO BELONGINGS LOCKED UP CHECKED ROOM FOR BELONGINGS NONE FOUND SPOKE WITH FAMILY MEMBER THAT PT IS RETURNING TO [facility]
== END 2020-01-10 14:42 | DRG 871 ==
LOC: D.ICU 14:18 → D.MS 01-09 17:08
PROVIDERS: Family Medicine; Internal Medicine; Internal Medicine Hematology & Oncology; Internal Medicine Nephrology; ADMIT Family Medicine; ATTEND Family Medicine
PROC: 05H533Z Insertion of Infusion Device into Right Subclavian Vein, Percutaneous Approach (ICD-10-PCS; principal; 2020-01-03)
PROC: 03HC33Z Insertion of Infusion Device into Left Radial Artery, Percutaneous Approach (ICD-10-PCS; 2020-01-03)
PROC: 0DJ08ZZ Inspection of Upper Intestinal Tract, Via Natural or Artificial Opening Endoscopic (ICD-10-PCS; 2020-01-04)
DX: A41.9 Sepsis, unspecified organism (principal); R65.21 Severe sepsis with septic shock; G93.41 Metabolic encephalopathy; K29.01 Acute gastritis with bleeding; K29.81 Duodenitis with bleeding; N17.0 Acute kidney failure with tubular necrosis; E87.2 Acidosis; D62 Acute posthemorrhagic anemia; E87.0 Hyperosmolality and hypernatremia; Z86.73 Personal history of transient ischemic attack (TIA), and cerebral infarction without residual deficits; R09.02 Hypoxemia; I48.91 Unspecified atrial fibrillation; I11.0 Hypertensive heart disease with heart failure; I50.9 Heart failure, unspecified; K21.9 Gastro-esophageal reflux disease without esophagitis; I95.9 Hypotension, unspecified; K20.9 Esophagitis, unspecified; L08.9 Local infection of the skin and subcutaneous tissue, unspecified; D69.6 Thrombocytopenia, unspecified; E87.6 Hypokalemia